=== PATIENT | female | born 1930 | race Caucasian/White ===

== ENCOUNTER → 2019-07-07 | Outpatient (CLI) | payer OTHER | LOC: HYPER 12:22 | DX: L89.613 Pressure ulcer of right heel, stage 3 (principal); I87.2 Venous insufficiency (chronic) (peripheral); M14.60 Charcot's joint, unspecified site; L84 Corns and callosities; G60.3 Idiopathic progressive neuropathy; I73.89 Other specified peripheral vascular diseases; R26.89 Other abnormalities of gait and mobility; J44.9 Chronic obstructive pulmonary disease, unspecified; E78.00 Pure hypercholesterolemia, unspecified; H35.30 Unspecified macular degeneration; M86.9 Osteomyelitis, unspecified; F41.9 Anxiety disorder, unspecified; F32.9 Major depressive disorder, single episode, unspecified; Z87.891 Personal history of nicotine dependence; Z79.82 Long term (current) use of aspirin; Z89.412 Acquired absence of left great toe ==

== ENCOUNTER → 2020-03-18 | Outpatient (CLI) | payer OTHER | LOC: HYPER 08:10 | PROVIDERS: ATTEND Emergency Medicine Emergency Medical Services | DX: L89.613 Pressure ulcer of right heel, stage 3 (principal); L03.011 Cellulitis of right finger; I87.2 Venous insufficiency (chronic) (peripheral); M86.9 Osteomyelitis, unspecified; M14.60 Charcot's joint, unspecified site; L84 Corns and callosities; G60.3 Idiopathic progressive neuropathy; I73.89 Other specified peripheral vascular diseases; R26.89 Other abnormalities of gait and mobility; J44.9 Chronic obstructive pulmonary disease, unspecified; E78.00 Pure hypercholesterolemia, unspecified; I10 Essential (primary) hypertension; H35.30 Unspecified macular degeneration; Z87.891 Personal history of nicotine dependence; Z89.412 Acquired absence of left great toe ==